=== PATIENT | male | born 1970 | race Two or more races ===

== ENCOUNTER → 2018-02-15 | Day surgery (SDC) | payer OTHER ==
[~2018-02-15] VITALS: Ht 30.5 cm; Wt 0.5 kg
[~2018-02-15] MED LIST: ACCU-CHEK COMFORT CURVE STRIP VI ONE; DEXAMETHASONE SOD PHOS 10MG/1ML VIAL INJ ONE; HYDROmorphone HCL 2 MG/ML VL IV PRN; KETOROLAC TROMETH 30 MG/ML 1ML VIAL IV ONE; LABETALOL HCL 5 MG/ML 4ML SYRINGE IV PRN; LIDOCAINE W/ EPINEPHRINE 1 % INJ 30ML ONE; MEPERIDINE HCL (50 MG/ML) 1 ML VIAL ONE; MIDAZOLAM HCL 1MG/1ML-2 ML VIAL IV PRN; MIDAZOLAM HCL 1MG/1ML-2 ML VIAL ONE; MORPHINE SULFATE 4 MG/ML SYR/VIAL IV ONE; MORPHINE SULFATE 4 MG/ML SYR/VIAL IV PRN; ONDANSETRON HCL 4 MG/2 ML VIAL IV ONE; PROPOFOL 10 MG/ML 20 ML IV ONE; ceFAZolin 1GM/50ML 50 ML IV ONE; ePHEDrine SULFATE 50 MG/ML AMP IV PRN; fentaNYL CITRATE 100 MCG/2 ML VL ONE
[2018-02-16 11:49] VITALS: BP 106/71
== END | disposition home or self-care (01) ==
LOC: SUR 05:45
PROVIDERS: ATTEND Urology
DX: N47.1 Phimosis (principal); N47.6 Balanoposthitis; E11.9 Type 2 diabetes mellitus without complications; E66.9 Obesity, unspecified; E03.9 Hypothyroidism, unspecified; F20.9 Schizophrenia, unspecified; Z90.49 Acquired absence of other specified parts of digestive tract; Z79.899 Other long term (current) drug therapy
CPT/HCPCS: 54150; 82962; 88304; J0690; J1100; J2001; J2175; J2250; J2704; J3010; J7030

== ENCOUNTER → 2018-05-10 | Day surgery (SDC) | payer OTHER ==
[~2018-05-10] VITALS: Ht 177.8 cm; Wt 112.5 kg
[~2018-05-10] MED LIST changes: -ACCU-CHEK COMFORT CURVE STRIP VI ONE; -DEXAMETHASONE SOD PHOS 10MG/1ML VIAL INJ ONE; -KETOROLAC TROMETH 30 MG/ML 1ML VIAL IV ONE; -LABETALOL HCL 5 MG/ML 4ML SYRINGE IV PRN; -LIDOCAINE W/ EPINEPHRINE 1 % INJ 30ML ONE; -MEPERIDINE HCL (50 MG/ML) 1 ML VIAL ONE; -MIDAZOLAM HCL 1MG/1ML-2 ML VIAL IV PRN; -MORPHINE SULFATE 4 MG/ML SYR/VIAL IV ONE; -MORPHINE SULFATE 4 MG/ML SYR/VIAL IV PRN; +hydrALAZINE HCL 20 MG/ML VL IV PRN
[2018-05-10 07:45] LABS: Basophils # (auto) 0 uL; Basophils % (auto) 0.3 % (0.0-2.0); Eosinophils # (auto) 0 uL; Eosinophils % (auto) 0.1 % (0.0-7.0); Hematocrit 40.8 % (41.0-53.0); Hemoglobin 13.8 g/dL (13.5-17.5); Lymphocytes # (auto) 1.7 uL; Lymphocytes % (auto) 33.1 % (10.0-50.0); Mean Corpuscular Hemoglobin 28.5 pg (28.0-32.0); Mean Corpuscular Hgb Conc. 33.8 g/dL (32.0-36.0); Mean Corpuscular Volume 84.3 fL (80.0-100.0); Monocytes # (auto) 0.5 uL; Monocytes % (auto) 8.8 % (0.0-12.0); Neutrophils % (auto) 57.7 % (37.0-80.0); Nucleated Red Blood Cells % 0.1 %; Platelet Count (auto) 204 10^3/uL (140-450); Red Blood Cells 4.84 10^6/uL (4.5-5.90); Red Cell Distribution Width 13.3 % (11.8-14.3); White Blood Cell 5.1 10^3/uL (4.4-10.8)
[2018-05-10 08:03] LABS: BUN/Creatinine Ratio 17.9; Calcium 8.3 mg/dL (8.5-10.1); Potassium 4.2 mmol/L (3.5-5.1)
[2018-05-10 08:06] LABS: INR 0.92 (0.9-1.15); Partial Thromboplastin Time 25.7 sec (23.78-33.04); Prothrombin Time 9.9 sec (9.27-12.13)
[2018-05-10] MEDS: HYDROmorphone HCL 2 MG/ML VL IV PRN ×2 (13:14→13:42)
[2018-05-10 14:05] VITALS: BP 132/80
== END | disposition home or self-care (01) ==
LOC: SUR 06:10
PROVIDERS: ATTEND Urology
DX: N35.919 Unspecified urethral stricture, male, unspecified site (principal); N35.911 Unspecified urethral stricture, male, meatal; N48.0 Leukoplakia of penis
CPT/HCPCS: 36415; 52281; 71045; 80048; 82962; 85025; 85610; 85730; J0690; J1170; J2250; J2704; J3010